=== PATIENT | male | born 1980 | race African-American/Black ===

== ENCOUNTER 2018-04-28 09:52 | Emergency (ER) | payer BC ==
[2018-04-28 10:12] VITALS: BP 124/85
--- NOTE | 2018-04-28 11:27 | UC ---
Dental HPI - HPI Summary HPI Summary: FILLING FELL OUT OF LEFT UPPER 2ND MOLAR (#15) 3 MONTHS AGO. DEVELOPED PAIN AND SENSITIVITY SEVERAL WEEKS AGO. COULD NOT GET INTO DENTIST UNTIL 2 WEEKS FROM NOW. CAN NOT SLEEP DUE TO PAIN. OTC MEDS NOT WORKING. DENIES FEVER, DRAINAGE FROM THE TOOTH. - History of Current Complaint Chief Complaint: UCDentalProblem Stated Complaint: DENTAL Time Seen by Provider: 04/28/18 11:04 Hx Obtained From: Patient Onset/Duration: Gradual Onset, Lasting Weeks, Still Present Severity: Moderate Pain Intensity: 10 Pain Scale Used: 0-10 Numeric Aggravating Factor(s): Heat, Cold, Chewing Alleviating Factor(s): Nothing Related History: Previous Dental Care on Same Tooth - Allergies/Home Medications Allergies/Adverse Reactions: Allergies Allergy/AdvReac Type Severity Reaction Status Date / Time Penicillins Allergy Hives Verified 04/28/18 10:12 Home Medications: Home Medications Ibuprofen 600 mg PO 04/28/18 [History] PMH/Surg Hx/FS Hx/Imm Hx Previously Healthy: Yes - Surgical History Surgical History: Yes Surgery Procedure, Year, and Place: foot surgery 3 times. - Family History Known Family History: Positive: Non-Contributory - Social History Alcohol Use: Daily Substance Use Type: None Smoking Status (MU): Former Smoker Review of Systems All Other Systems Reviewed And Are Negative: Yes Constitutional: Positive: Negative ENT: Positive: Dental Pain Respiratory: Positive: Negative Cardiovascular: Positive: Negative Gastrointestinal: Positive: Negative Physical Exam Triage Information Reviewed: Yes Appearance: Well-Appearing, No Pain Distress, Well-Nourished Vital Signs: Initial Vital Signs Temp 98.7 F 04/28/18 10:08 Pulse 85 04/28/18 10:08 Resp 18 04/28/18 10:08 BP 124/85 04/28/18 10:08 Pulse Ox 100 04/28/18 10:08 Vital Signs Reviewed: Yes Eyes: Positive: Conjunctiva Clear ENT: Positive: Hearing grossly normal, Pharynx normal Dental: Positive: Percussion Tenderness @ - #15, Gross Decay/Caries @ - MISSING FILLING #15 Neck: Positive: Supple, Nontender, No Lymphadenopathy Respiratory: Positive: No respiratory distress, No accessory muscle use Cardiovascular: Positive: Pulses Normal Abdomen Description: Positive: Soft Musculoskeletal: Positive: No Edema Neurological: Positive: Alert Psychological: Positive: Age Appropriate Behavior Skin: Negative: Rashes Dental Complaint Course/Dx - Differential Dx/Diagnosis Provider Diagnosis: Tooth pain Discharge - Sign-Out/Discharge Documenting (check all that apply): Patient Departure All imaging exams completed and their final reports reviewed: No Studies - Discharge Plan Condition: Stable Disposition: HOME Prescriptions: Chlorhexidine MW 0.12% 473ML* [Peridex Mouth Wash 0.12%*] 15 ml SWISH SPIT BID # 1 bottle Clindamycin Cap(NF) [Clindamycin Cap 300 mg Cap(NF)] 300 mg PO TID #30 cap HYDROcodone/ACETAMIN 5-325 MG* [[place] 5-325 TAB*] 1 tab PO Q6H PRN #15 tab MDD 4 PRN Reason: Pain Patient Education Materials: Toothache (ED) Referrals: No Primary Care Phys,NOPCP [Primary Care Provider] - Additional Instructions: KEEP YOUR DENTAL APPT IN 2 WEEKS. CALL FOR CANCELLATIONS. TAKE THE ANTIBIOTICS FOR THE FULL COURSE. RINSE YOUR MOUTH WITH WATER AFTER EATING OR DRINKING ANYTHING. ANTISEPTIC MOUTH RINSE TWICE DAILY. OTC MEDS NEEDED FOR DISCOMFORT. HYDROCODONE FOR BREAKTHROUGH PAIN IBUPROFEN MAX DOSE: 600MG (3 TABS) EVERY 6 HRS OR 800MG (4 TABS) EVERY 8 HRS OR NAPROXEN MAX DOSE: 440MG (2 TABS) EVERY 12 HRS TYLENOL MAX DOSE: 1000MG (2 EXTRA STRENGTH TABS) EVERY 8 HRS OR 650MG (2 REGULAR TABS) EVERY 6 HRS CALL THE NUMBER BELOW FOR ASSISTANCE IN ESTABLISHING WITH A PCP An additional resource available to assist in finding the appropriate physician for your health care needs is [facility] ([facility]). You may contact them by calling [phone]. - Billing Disposition and Condition Condition: STABLE Disposition: Home
== END 2018-04-28 11:30 | disposition home or self-care (01) ==
LOC: UCEAST 09:52
DX: K08.89 Other specified disorders of teeth and supporting structures (principal); Z87.891 Personal history of nicotine dependence; Z88.0 Allergy status to penicillin
CPT/HCPCS: 99202; G0463

== ENCOUNTER 2018-06-02 20:05 | Emergency (ER) | payer BC ==
[2018-06-02 20:15] VITALS: BP 125/91
[2018-06-02] MEDS ORDERED: Ibuprofen TAB* 600 MG PO ONE (20:23)
[2018-06-02] MEDS ORDERED: Neomyc/Polym/HC 1% OTIC SUSP* **OTIC LEFT EAR ONE (20:23)
--- NOTE | 2018-06-02 20:27 | UC ---
Ear Complaint HPI - HPI Summary HPI Summary: 38-year-old male comes in with a chief complaint of left ear pain. About 4 days ago patient started with upper respiratory tract infection symptoms. The pain started at that time it's been getting worse. Reports having fevers. He did acetaminophen which did help some with the pain. Denies any difficulty swallowing. Has not been swimming. - History of Current Complaint Chief Complaint: UCEar Stated Complaint: EAR ACHE Time Seen by Provider: 06/02/18 20:13 Pain Intensity: 7 - Allergies/Home Medications Allergies/Adverse Reactions: Allergies Allergy/AdvReac Type Severity Reaction Status Date / Time Penicillins Allergy Hives Verified 04/28/18 10:12 PMH/Surg Hx/FS Hx/Imm Hx Previously Healthy: Yes - Surgical History Surgical History: Yes Surgery Procedure, Year, and Place: foot surgery 3 times. - Family History Known Family History: Positive: Non-Contributory - Social History Alcohol Use: Daily Substance Use Type: None Smoking Status (MU): Former Smoker Review of Systems All Other Systems Reviewed And Are Negative: Yes Constitutional: Positive: Fever Skin: Positive: Negative Eyes: Positive: Negative ENT: Positive: Sore Throat, Ear Ache, Nasal Discharge, Sinus Congestion Respiratory: Positive: Negative Cardiovascular: Positive: Negative Gastrointestinal: Positive: Negative Motor: Positive: Negative Neurovascular: Positive: Negative Musculoskeletal: Positive: Negative Neurological: Positive: Negative Psychological: Positive: Negative Is Patient Immunocompromised?: No Physical Exam Triage Information Reviewed: Yes Appearance: Well-Appearing, No Pain Distress, Well-Nourished Vital Signs: Initial Vital Signs Temp 98.4 F 06/02/18 20:09 Pulse 74 06/02/18 20:09 Resp 16 06/02/18 20:09 BP 125/91 06/02/18 20:09 Pulse Ox 99 06/02/18 20:09 Vital Signs Reviewed: Yes Eye Exam: Normal Eyes: Positive: Conjunctiva Clear ENT: Positive: Nasal congestion, Other - LEFT EAR CANAL WITH DEBRIS AND CERUMEN IMACTION. LEFT TRAGUS TENDER TO PALPATION. RT TM WNL. Neck: Positive: Supple Respiratory: Positive: Lungs clear, Normal breath sounds, No respiratory distress Cardiovascular: Positive: RRR Musculoskeletal Exam: Normal Musculoskeletal: Positive: Strength Intact, ROM Intact Neurological Exam: Normal Neurological: Positive: Alert, Muscle Tone Normal Psychological Exam: Normal Psychological: Positive: Age Appropriate Behavior Skin Exam: Normal Ear Complaint Course/Dx - Course Course Of Treatment: The patient has left ear cerumen impaction. He is tender to palpation of the tragus and on exam with the otoscope indicating probable otitis externa. He's had a fever upper respiratory tract infection which brings up the possibility of an otitis media on the left side also. Going to use doxycycline to treat for the potential otitis media. Patient was started on Cortisporin otic eardrops in clinic for the otitis externa. Patient was a fair amount of pain and therefore no ear irrigation was undertaken at this time. I let the patient know that he should use [id number] earwax removal drops and to get reevaluated if he worsens or has any questions or concerns. - Differential Dx/Diagnosis Provider Diagnosis: Left ear pain, Infection of left ear, Impacted cerumen, left ear Discharge - Sign-Out/Discharge Documenting (check all that apply): Patient Departure All imaging exams completed and their final reports reviewed: No Studies - Discharge Plan Condition: Stable Disposition: HOME Prescriptions: DOXYcycline CAP(*) [DOXYcycline 100MG CAP(*)] 100 mg PO BID #20 cap Patient Education Materials: Cerumen Impaction (ED), Ear Infection (ED), Earache (ED) Referrals: Anaya Prakash [Primary Care Provider] - Additional Instructions: FOLLOW UP WITH YOUR DOCTOR IF NOT COMPLETELY IMPROVED. USE OVER THE COUNTER EAR WAX REMOVAL DROPS. GET REEVALUATED SOONER IF YOUR CONDITION WORSENS OR ANY QUESTIONS OR CONCERNS. - Billing Disposition and Condition Condition: STABLE Disposition: Home
== END 2018-06-02 20:39 | disposition home or self-care (01) ==
LOC: UCEAST 20:05
DX: H66.92 Otitis media, unspecified, left ear (principal); H61.22 Impacted cerumen, left ear; Z88.0 Allergy status to penicillin; Z87.891 Personal history of nicotine dependence
CPT/HCPCS: 99212; A9270-GY; G0463